=== PATIENT | male | born 1990 | race Caucasian/White ===

== ENCOUNTER → 2023-12-19 | Outpatient (CLI) | payer BC ==
--- NOTE | 2023-12-19 17:09 | P.SLEEP ---
History of Present Illness H&P Date: 12/19/23 This is a 33-year-old coming in to be evaluated for poor sleep quality. 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 He still works 2 days a month and on those monitoring weeks, he has to get up 5:45 AM in the morning. He typically goes to bed at around 2 AM. He plays video games throughout the night till 2 AM around 5 to 6 days a week. He gets out of bed at around 8:30 in the morning. Unfortunately, on those days that he has to work, he sleeps only 3 to 4 hours. He feels very much tired and sleepy during the day. He takes naps that typically last for an hour. He has also history of snoring and he has been told to quit breathing in the middle of the night. Denies choking or gasping for air. He has some limited anxiety and he grinds his teeth. His current Houston score is at 11. No recent weight gain his weight has been stable. No alcoholism. No substance abuse. He smokes cigars. No head trauma. No PTSD. No depression. Does not fall asleep while driving his car and does not have any previous history of motor vehicle accidents because of feeling drowsy or sleepy. Past medical history is negative Past surgical history is negative Medications Aleve on a necessary basis Social history smokes cigars. No history of alcoholism. No send substance abuse. No history of excessive caffeinated beverage intake Family history is positive for heart problems in the father and hypertension in father along with diabetes mellitus in his father. Review system A 14 point review of system was done and the positive findings are mentioned above in history of present illness. No restlessness in lower extremities. No sleepwalking or sleep talking. No palpitations. No heartburn. No chest pain. No shortness of breath. No sleep paralysis. No hallucinations. No cataplexy. No seizures. BP is 143/84 with a pulse of 57 respiration of 16 and a temperature is 98.5. Size of the neck is 17.5 inches. Houston score is at 4. BMI 31. Pulse ox 98% on room air oxygen The patient appeared well nourished and normally developed. Vital signs as docu mented. Head exam is unremarkable. No scleral icterus or corneal arcus noted. Neck is without jugular venous distension, thyromegaly, or carotid bruits. Carotid upstrokes are brisk bilaterally. Lungs are clear to auscultation and percussion. Cardiac exam reveals the PMI to be normally sized and situated. Rhythm is regular. First and second heart sounds normal. No murmurs, rubs or gallops. Abdominal exam reveals normal bowel sounds, no masses, no organomegaly and no aortic enlargement. Extremities are nonedematous and both femoral and pedal pulses are normal. Examination of the skin revealed no evidence of significant rashes, suspicious appearing nevi or other concerning lesions. Neurologically, the patient is awake and alert and the patient does not have any focal neurological deficit. Cranial nerves are essentially intact. Assessment Chronic hypersomnia under investigation. Patient has an Houston score of 4. Note that the patient has insufficient sleep syndrome on those days that the patient goes to work also known as minute 3 weeks. He has very poor sleep hygiene measures where he overstimulated himself with playing videogames and staying up till 2 AM in the morning. As such, he is unable to generate sleep and his sleep maintenance is also affected possibly related to underlying obstructive sleep apnea and this needs to be further investigated. My overall suspicion for sleep apnea is low and I think this patient's problems are related to poor sleep hygiene measures and insufficient sleep syndrome Plan I discussed at length on improving his sleep hygiene measures. The patient needs to eliminate video sudeep at nighttime. He needs to indulge himself in activities that are more relaxing. He needs to eliminate light stimulation from videogames, televisions, tablets, etc. Recommend in light, relaxation techniques, meditation yoga and book reading prior to going to bed. Gave advice on exercising in the afternoon. He needs to wake up early and get out of bed at around 630 or 7:00 in the morning and he needs to maintain the same schedule on working days also where he may even go to bed earlier. As far as sleep apnea, I think this is a less likely possibility. However, the patient is going to be given a polysomnography to be evaluated for sleep apnea and further recommendations will be made if sleep apnea is found. In my opinion, the patient's sleep problems and daytime hypersomnia is self-induced. Sleep Note - Sleep Note Sleep Note: Temperature: Pulse Rate: Respiratory Rate: Blood Pressure: SpO2: Height: Weight: BMI: Neck Circumference:
== END ==
LOC: 3 N SLEEP 15:27
PROVIDERS: ATTEND Internal Medicine Critical Care Medicine
DX: G47.33 Obstructive sleep apnea (adult) (pediatric) (principal); G47.10 Hypersomnia, unspecified; F51.12 Insufficient sleep syndrome
CPT/HCPCS: 99202